=== PATIENT | female | born 1945 | race Caucasian/White ===

== ENCOUNTER 2017-04-12 06:35 | Inpatient (IN) | payer OTHER, BC ==
[2017-03-23 10:20] VITALS: BMI 16.0
--- NOTE | 2017-03-23 10:49 | PAT Medication Instructions ---
Service Date Mar 23, 2017. Current Home Medication List Aspirin (Aspirin Ec), 81 MG PO QAM Calcium Citrate-Vitamin D (Citracal + D3 Maximum), 1 TAB PO QAM Eplerenone (Inspra), 25 MG PO BID Fish Oil ([place]-3), 1 CAP PO QAM Fvpfpbcivav-Awibpjkuqkp-Lvr C- (Glucosamine Chondroitin), 1 TAB PO QAM Hydroxychloroquine Sulfate (Plaquenil), 200 MG PO QPM Multiple Vitamins W/ Minerals (Multi For Her 50+), 1 TAB PO QAM Specialty Vitamins Products (Lipidshield Plus), 1 TAB PO QAM [Cataplex B 12], 1 TAB PO QAM [Garlique], 1 TAB PO QAM Medication Instructions For Your Scheduled Surgery - Check with surgeon for instructions: Aspirin (Aspirin Ec), 81 MG PO QAM - Hold the following medications 2 weeks prior to surgery: [Garlique], 1 TAB PO QAM Fish Oil ([place]-3), 1 CAP PO QAM Pyyrzyzrwdz-Lqxsxkiwiwc-Pgm C- (Glucosamine Chondroitin), 1 TAB PO QAM - Check with prescribing physician for instructions: Hydroxychloroquine Sulfate (Plaquenil), 200 MG PO QPM - Hold the following medications the morning of surgery: Calcium Citrate-Vitamin D (Citracal + D3 Maximum), 1 TAB PO QAM Eplerenone (Inspra), 25 MG PO BID Multiple Vitamins W/ Minerals (Multi For Her 50+), 1 TAB PO QAM Specialty Vitamins Products (Lipidshield Plus), 1 TAB PO QAM [Cataplex B 12], 1 TAB PO QAM - Take the following medications as scheduled the night before surgery: Eplerenone (Inspra), 25 MG PO BID If you have any questions please call us at [phone] or [phone] or [phone]
--- NOTE | 2017-03-23 11:38 | DIAGNOSTIC IMAGING REPORT ---
TWO VIEW CHEST CLINICAL HISTORY: Preoperative examination. FINDINGS: PA and lateral chest radiographs are obtained. No prior studies are available for comparison at the time of dictation. The cardiomediastinal silhouette is unremarkable. The lungs and pleural spaces are clear. There is no pneumothorax. The bony thorax appears intact. IMPRESSION: No active disease in the chest. Electronically signed by: Rudy Marroquin M.D. 03/23/2017 11:36 AM Dictated Date/Time: 03/23/2017 11:36 AM
[2017-03-23 11:52] LABS: BASO % 0.3 %; BASO ABS # 0.02 K/uL (0-0.2); EOS % 0.5 %; EOS ABS # 0.03 K/uL (0-0.5); HEMATOCRIT 44.1 % (37-47); HEMOGLOBIN 14.5 g/dL (12.0-16.0); IG# 0.01 K/uL (0.00-0.02); LYMPH % 24.8 %; LYMPH ABS # 1.51 K/uL (1.2-3.4); MEAN CELL VOLUME 97.6 fL (80-100); MEAN CORPUSCULAR HEMOGLOBIN 32.1 pg (25-34); MEAN CORPUSCULAR HGB CONC 32.9 g/dl (32-36); MEAN PLATELET VOLUME 11.4 fL (7.4-10.4); MONO % 6.3 %; MONO ABS # 0.38 K/uL (0.11-0.59); NEUT % 67.9 %; NEUT ABS # 4.13 K/uL (1.4-6.5); PLATELET COUNT 176 K/uL (130-400); RED CELL DISTRIBUTION WIDTH CV 13.9 % (11.5-14.5); RED CELL DISTRIBUTION WIDTH SD 49.4 fL (36.4-46.3); WHITE BLOOD COUNT 6.08 K/uL (4.8-10.8)
[2017-03-23 11:58] LABS: PTT PATIENT 26.4 SECONDS (21.0-31.0)
[2017-03-23 12:19] LABS: ALBUMIN 3.8 gm/dl (3.4-5.0); CALCIUM 10.6 mg/dl (8.5-10.1); CREATININE 0.78 mg/dl (0.60-1.20); POTASSIUM 4.4 mmol/L (3.5-5.1)
[2017-03-23 12:45] LABS: HEMOGLOBIN A1C 5.8 % (4.5-5.6)
--- NOTE | 2017-04-11 14:41 | HISTORY & PHYSICAL EXAMINATION ---
DATE OF ADMISSION: 04/12/2017 CHIEF COMPLAINT: Chronic right shoulder pain. HISTORY OF PRESENT ILLNESS: This is a 71-year-old female patient of Dr. Donis'olga complaining of chronic right shoulder pain and weakness. She has failed conservative treatment including 2 rotator cuff surgeries in the past. She had a recent fall on her right shoulder. An MRI confirmed a non-reparable rotator cuff and the patient elected to proceed with a right reversed total shoulder arthroplasty. PAST MEDICAL HISTORY: Hypertension, otherwise a healthy 71-year-old female. SOCIAL HISTORY: Nonsmoker, nondrinker. PAST SURGICAL HISTORY: Appendectomy, hysterectomy, lump removal from her neck, rotator cuff surgery x2 as mentioned before. FAMILY HISTORY: Noncontributory. REVIEW OF SYSTEMS: The patient complains of chronic right shoulder pain and weakness. Otherwise, denies any shortness of breath, chest pain, nausea, vomiting or any other joint complaints. MEDICATIONS: Include Centrum ultra women's daily, 81 mg aspirin daily, omega 3 fish oil daily, glucosamine and chondroitin daily, Citracal plus vitamin D3 daily, vitamin B12 1000 mcg daily. She is also on Plaquenil 200 mg in the evening and Eplerenone 25 mg 2 tablets daily. ALLERGIES: INCLUDE PENICILLIN. PHYSICAL EXAMINATION: GENERAL: A well-developed, well-nourished 71-year-old female in no acute distress. She is alert and oriented x3 and pleasant. HEENT: Normocephalic, atraumatic. Extraocular motions are intact. Pupils are equal and reactive to light. HEART: Regular rate and rhythm, no murmurs appreciated. LUNGS: Clear. ABDOMEN: Soft, nontender, bowel sounds present. EXTREMITIES: Right shoulder reveals a positive impingement and crepitation maneuvering. She has full range of motion with pain. She has decreased strength at 3/5. NEUROLOGIC: Neurovascularly, she is intact in her right upper extremity. DIAGNOSES: Right shoulder rotator cuff arthropathy. She has a history of hypertension. PLAN: The patient was advised of her diagnosis. Indications, risks, benefits, and postop course have all been reviewed. The patient wishes to proceed with a right reversed total shoulder arthroplasty. Necessary consent forms, preoperative testing and clearances will be obtained.
[2017-04-12] VITALS (7 sets, daily range): BP systolic 99–172; BP diastolic 65–95; PULSE 77–90; TEMP 36.4–36.7; O2SAT 92–98; Ht 172.7 cm; Wt 49.8 kg
[~2017-04-12] VITALS: Ht 172.7 cm; Wt 49.8 kg
[~2017-04-12 06:35] MED LIST: ACETAMINOPHEN 500 MG TAB PO SCH; ASPI81TA28 PO; CALC1TAB9 PO; CATAPLEX B PO; CeleBREX 200 MG CAP PO SCH; DEXAMETHASONE 4 MG TAB PO SCH; FAMOTIDINE 20 MG TAB PO SCH; GABAPENTIN 300 MG CAP PO SCH; GARLIQUE PO; GLUCTAB7 PO; HYDR200T5 PO; INS/25 PO; LACTATED RINGER'S 1000ML 1,000 ML IV SCH; LACTATED RINGER'S 1000ML IV SCH; METOCLOPRAMIDE HCL 10 MG TAB PO SCH; MULT-223 PO; OMEG10007 PO; ROPIVACAINE 0.5% 5 MG/ML 30 ML VIAL ONE; SODIUM CHLORIDE 0.9% IV SCH; SPEC1TAB PO; VANCOMYCIN INJ 750 MG in SODIUM CHLORIDE 0.9% 250ML 250 ML IV SCH; VANCOMYCIN IV SCH
[2017-04-12] MEDS ORDERED: HYDROmorphone INJ 0.5 MG/0.5 ML SYR IV PRN (08:00)
[2017-04-12] MEDS ORDERED: ONDANSETRON INJ 2 MG/ML 2 ML VIAL IV PRN ×3 (08:00→12:15)
[2017-04-12] MEDS ORDERED: EpHEDrine SULFATE INJ 50 MG/ML AMP IV PRN ×2 (08:00)
[2017-04-12] MEDS ORDERED: HYDROmorphone INJ 2 MG/ML SYR/VIAL IV PRN (08:00)
[2017-04-12] MEDS ORDERED: PHENYLEPHRINE 100MCG/ML 5ML SYR IV PRN ×2 (08:00)
[2017-04-12] MEDS ORDERED: ATROPINE SULFATE 0.1 MG/ML 5ML SYR IV PRN ×2 (08:00)
[2017-04-12] MEDS ORDERED: ROCURONIUM BROMIDE 10 MG/ML 5 ML VIAL IV ONE ×2 (08:49→11:15)
[2017-04-12] MEDS ORDERED: MIDAZOLAM HCL 1 MG/ML 2ML VIAL ONE (08:49)
[2017-04-12] MEDS ORDERED: PROPOFOL IV EMULSION 10 MG/ML 20 ML VIAL IV ONE (08:49)
[2017-04-12] MEDS ORDERED: FENTANYL CITRATE INJ 50 MCG/1 ML 2 ML VIAL ONE ×2 (08:49→11:56)
--- NOTE | 2017-04-12 08:52 | History & Physical Bridge Note ---
H&P Re-Evaluation Bridge Note: I have examined the patient, reviewed the History & Physical and in the interval since the performance of the History & Physical I have noted the following changes of clinical significance: No changes noted
[2017-04-12] MEDS ORDERED: BACITRACIN 50000 UNIT VIAL ONE (09:47)
[2017-04-12] MEDS ORDERED: ONDANSETRON INJ 2 MG/ML 2 ML VIAL ONE (10:58)
[2017-04-12] MEDS ORDERED: EpHEDrine SULFATE 50MG/5ML SYR ONE (10:58)
[2017-04-12] MEDS ORDERED: PHENYLEPHRINE 100MCG/ML 5ML SYR ONE (10:58)
[2017-04-12] MEDS ORDERED: GLYCOPYRROLATE INJ 0.2 MG/ML VIAL ONE (11:56)
[2017-04-12] MEDS ORDERED: NEOSTIGMINE METHYLSULFATE 5 MG/5 ML SYR ONE (11:56)
--- NOTE | 2017-04-12 12:10 | [facility] Post Operative Brief Note ---
Immediate Operative Summary Operative Date Apr 12, 2017. Pre-Operative Diagnosis Right Shoulder Rotator Cuff Arthropathy,failed rotator cuff repair ,retained hardware and suture Post-Operative Diagnosis same ,chronic biceps rupture with retraction Procedure(s) Performed Right Reverse Total Shoulder Arthroplasty Uncemented,hardware removal suture excision Surgeon Dr Donis Associate Professor Of Counseling Surgeon(s) Kevin Schneider PA-C Estimated Blood Loss 50ml Findings as above Specimens As Per Surgeon A. Right Humerus Head with Explant Drains 2 hemovac Anesthesia general and regional Complication(s) None Disposition Recovery Room / PACU
[2017-04-12] MEDS ORDERED: ZOLPIDEM TARTRATE 5 MG TAB PO PRN (12:15)
[2017-04-12] MEDS ORDERED: MAGNESIUM HYDROXIDE SUSP 30 ML UDC PO PRN (12:15)
[2017-04-12] MEDS ORDERED: METOCLOPRAMIDE HCL INJ 5 MG/ML 2 ML VIAL IV PRN (12:15)
[2017-04-12] MEDS ORDERED: MoRPHine SULFATE 2 MG/ML CARP IV PRN (12:15)
[2017-04-12] MEDS ORDERED: BISACODYL 10 MG SUPP PR PRN (12:15)
[2017-04-12] MEDS ORDERED: NALOXONE HCL 0.4 MG/1 ML VIAL/CARP IV PRN (12:15)
[2017-04-12] MEDS ORDERED: VANCOMYCIN CONSULT ACTIVE PRN (12:15)
--- NOTE | 2017-04-12 12:39 | DIAGNOSTIC IMAGING REPORT ---
RIGHT SHOULDER 2 VIEWS CLINICAL HISTORY: Postoperative examination. FINDINGS: 2 portable views of the right shoulder are obtained. A right shoulder arthroplasty is in near-anatomic alignment. No fracture is seen. The acromioclavicular joint is preserved. There are expected postoperative changes overlying the right shoulder including skin clips, subcutaneous gas, soft tissue swelling, and a surgical drain. The visualized right lung parenchyma appears clear. IMPRESSION: Expected postoperative findings status post right shoulder arthroplasty. No acute fracture is seen. Electronically signed by: Rudy Marroquin M.D. 04/12/2017 12:38 PM Dictated Date/Time: 04/12/2017 12:37 PM
--- NOTE | 2017-04-12 13:24 | Anesthesiology Progress Note ---
Anesthesia Post Op Note Date & Time Apr 12, 2017 at 13:24 Vital Signs Pain Intensity: 0 Vital Signs Past 12 Hours Date Time Temp Pulse Resp B/P (MAP) Pulse Ox O2 Delivery O2 Flow Rate FiO2 04/12/17 12:55 36.0 81 16 135/69 100 Nasal Cannula 3 04/12/17 12:45 77 16 143/78 100 Oxymask 3 04/12/17 12:35 77 16 143/83 100 Oxymask 3 04/12/17 12:25 81 16 146/76 100 Oxymask 3 04/12/17 12:18 36.1 79 18 160/84 100 Oxymask 10 04/12/17 07:25 36.6 79 16 172/95 98 Room Air Notes Mental Status: alert / awake / arousable, participated in evaluation Pt Amnestic to Procedure: Yes Nausea / Vomiting: adequately controlled Pain: adequately controlled Airway Patency, RR, SpO2: stable & adequate BP & HR: stable & adequate Hydration State: stable & adequate Anesthetic Complications: no major complications apparent
[2017-04-12] MEDS: D5W AND 1/2NSS + 20MEQ KCL 1,000 ML IV SCH ×2 (14:19→23:24)
--- NOTE | 2017-04-12 14:47 | Medical Consult ---
Consultation Date of Consultation: Apr 12, 2017. Attending Physician: Moustapha Donis M.D. Reason for Consultation: Medical management History of Present Illness Patient is a 71 y/o female, with PMHx of HTN and lupus, s/p R shoulder replacement by Dr. Donis on 04/12. Hospitalist team was consulted for medical management. Patient is feeling well postop. Ate dinner- no N/V. Pain is 0/10. No BM/flatus postop. Patient denies any fever, chills, sweats, lightheadedness, dizziness, vision changes, CP, palpitations, edema, SOB, wheezing, cough, abdominal pain, nausea, vomiting, diarrhea, urinary symptoms, melena, numbness/ tingling, weakness, muscle/joint pain, anxiety/depression, active bleeding, or new skin discoloration/changes. Past Medical/Surgical History PAST MEDICAL HISTORY: HTN lupus PAST SURGICAL HISTORY: Appendectomy hysterectomy lump removal from her neck rotator cuff surgery x2 Family History [place], breast cancer Social History Smoking Status: Never Smoker Alcohol Use: none Drug Use: none Marital Status: Housing Status: lives with family Allergies Coded Allergies: Amlodipine (Verified Allergy, Intermediate, joint edema, 04/12/17) Penicillins (Verified Allergy, Unknown, SWELLING JOINTS, 04/12/17) Home Medications Reported Home Medications Medications Dose Route/Sig Max Daily Dose Days Date Category Inspra (Eplerenone) 25 Mg Tab 25 Mg PO BID 03/23/17 Reported Plaquenil (Hydroxychloroquine Sulfate) 200 Mg Tab 200 Mg PO QPM 03/23/17 Reported [Garlique] 1 Tab PO QAM 03/23/17 Reported [Cataplex B 12] 1 Tab PO QAM 03/23/17 Reported Lipidshield Plus (Specialty Vitamins Products) 1 Tab Tab 1 Tab PO QAM 03/23/17 Reported Citracal + D3 Maximum (Calcium Citrate-Vitamin D) 1 Tab Tab 1 Tab PO QAM 03/23/17 Reported Glucosamine Chondroitin (Wzaptfhdxeh-Beohcjdetwv-Gzq C-) 1 Tab Tab 1 Tab PO QAM 03/23/17 Reported [place]win-3 (Fish Oil) 1 Ea Cap 1 Cap PO QAM 03/23/17 Reported Aspirin Ec (Aspirin) 81 Mg Tab 81 Mg PO QAM 03/23/17 Reported Multi For Her 50+ (Multiple Vitamins W/ Minerals) 1 Tab Tab 1 Tab PO QAM 03/23/17 Reported Current Inpatient Medications Current Inpatient Medications Medications (Trade) Dose Ordered Sig/Morgan Route Start Time Stop Time Status Last Admin Dose Admin Lactated Ringer's 1,000 ml @ 60 mls/hr [id number] IV 04/12/17 06:00 04/12/17 22:39 Acetaminophen (Tylenol Tab) 1,000 mg PREOP PO 04/12/17 06:00 04/12/17 18:00 04/12/17 07:34 1,000 MG Celecoxib (CeleBREX CAP) 200 mg PREOP PO 04/12/17 06:00 04/12/17 18:00 04/12/17 07:34 200 MG Dexamethasone (Decadron Tab) 8 mg PREOP PO 04/12/17 06:00 04/12/17 18:00 04/12/17 07:35 8 MG Famotidine (Pepcid Tab) 20 mg PREOP PO 04/12/17 06:00 04/12/17 18:00 04/12/17 07:35 20 MG Gabapentin (Neurontin Cap) 300 mg PREOP PO 04/12/17 06:00 04/12/17 18:00 04/12/17 07:35 300 MG Metoclopramide HCl (Reglan Tab) 10 mg PREOP PO 04/12/17 06:00 04/12/17 18:00 04/12/17 07:35 10 MG Lactated Ringer's 1,000 ml @ 15 mls/hr Q24H IV 04/12/17 06:00 04/13/17 05:59 04/12/17 07:18 15 MLS/HR Vancomycin HCl 750 mg/Sodium Chloride 265 ml @ 125 mls/hr PREOP@0600 IV 04/12/17 06:00 04/12/17 19:00 04/12/17 08:05 125 MLS/HR Aspirin (Ecotrin Tab) 81 mg QAM PO 04/13/17 09:00 05/13/17 08:59 Hydroxychloroquine Sulfate (Plaquenil Tab) 200 mg QPM PO 04/12/17 21:00 05/12/17 20:59 Calcium/Vitamin D (Caltrate Plus Tab) 1 tab QAM PO 04/13/17 09:00 05/13/17 08:59 Miscellaneous Information (Order Awaiting Action) 1 ea QS N/A 04/12/17 14:00 05/12/17 13:59 Diphenhydramine HCl (Benadryl Cap) 25 mg Q8 PRN PO 04/12/17 12:15 05/12/17 12:14 Zolpidem Tartrate (Ambien Tab) 5 mg HSZ PRN PO 04/12/17 12:15 05/12/17 12:14 Metoclopramide HCl (Reglan Inj) 10 mg Q6H PRN IV 04/12/17 12:15 05/12/17 12:14 Ondansetron HCl (Zofran Inj) 4 mg Q6H PRN IV 04/12/17 12:15 05/12/17 12:14 Pantoprazole Sodium (Protonix Tab) 40 mg QAM PO 04/13/17 09:00 05/13/17 08:59 Potassium Chloride/Dextrose/ Sod Cl 1,000 ml @ 100 mls/hr Q10H IV 04/12/17 14:00 04/13/17 13:59 04/12/17 14:19 100 MLS/HR Vancomycin HCl 750 mg/Sodium Chloride 265 ml @ 125 mls/hr Q12H IV 04/12/17 20:00 04/12/17 22:08 Oxycodone HCl (Roxicodone Immediate Rel Tab) `1-2 TABS FOR PAIN `1 TAB... Q4H PRN PO 04/12/17 12:15 04/26/17 12:14 Acetaminophen (Tylenol Tab) 1,000 mg Q8 PO 04/12/17 22:00 05/12/17 21:59 Morphine Sulfate (MoRPHine SULFATE INJ) 2 mg Q2H PRN IV 04/12/17 12:15 04/26/17 12:14 Naloxone HCl (Narcan Inj) 0.1 mg Q2M PRN IV 04/12/17 12:15 05/12/17 12:14 Magnesium Hydroxide (Milk Of Magnesia Susp) 30 ml Q6H PRN PO 04/12/17 12:15 05/12/17 12:14 Bisacodyl (Dulcolax Supp) 10 mg DAILY PRN OK 04/12/17 12:15 05/12/17 12:14 Docusate Sodium (coLACE CAP) 100 mg BID PO 04/12/17 21:00 05/12/17 20:59 Multivitamins (Multivitamin Tab) 1 tab DAILY PO 04/13/17 09:00 05/13/17 08:59 Physical Exam Date Time Temp Pulse Resp B/P (MAP) Pulse Ox O2 Delivery O2 Flow Rate FiO2 04/12/17 13:49 80 16 128/75 (92) 92 Nasal Cannula 2.0 04/12/17 12:55 36.0 81 16 135/69 100 Nasal Cannula 3 04/12/17 12:45 77 16 143/78 100 Oxymask 3 04/12/17 12:35 77 16 143/83 100 Oxymask 3 04/12/17 12:25 81 16 146/76 100 Oxymask 3 04/12/17 12:18 36.1 79 18 160/84 100 Oxymask 10 04/12/17 07:25 36.6 79 16 172/95 98 Room Air General Appearance: no apparent distress, + pertinent finding (O2 NC ) Head: normocephalic, atraumatic Eyes: normal inspection, PERRL ENT: hearing grossly normal Neck: supple Respiratory/Chest: lungs clear, no respiratory distress, no accessory muscle use Cardiovascular: regular rate, rhythm Abdomen/GI: normal bowel sounds, non tender, soft Back: normal inspection Extremities/Musculoskelatal: no calf tenderness, no pedal edema Neurologic/Psych: alert, normal mood/affect, oriented x 3 Skin: normal color, warm/dry, no rash Assessment & Plan Patient is a 71 y/o female, with PMHx of HTN and lupus, s/p R shoulder replacement by Dr. Donis on 04/12. s/p R shoulder replacement by Dr. Donis on 04/12: - Surgical manangement, pain management, PT/OT, and DVT prophylaxis as per primary team - Bowel regimen ordered - Encourage incentive spirometer - Follow postop CBC and PRP HTN: - Inspra 25 mg BID non-formulary - Cover w/ IV Hydralazine PRN while inpatient Lupus- follows w/ Dr. Rosenthal: Continue Plaquenil GI prophylaxis: Protonix daily DVT prophylaxis: ASA 81 mg daily as per surgical team Code Status: LEVEL I, FULL Dispo: As per primary team Attending Attestation & Consult note: Pt seen/examined, chart reviewed, care plan d/w HERMANN Conteh. I agree w/ the tena components of her consult note. Pt resting comfortably during my visit. Offered no c/o cp, dyspnea, abd pain. Ate dinner w/o incident. Is not aware of any past h/o high calcium. Mentions she is due for thyroid nodule bx next month. VSS, BPs low-normal gen - NAD sitting in chair comfortably heart - RRR lungs - CTA b/l abd - soft, NT, BS+ ext - right shoulder in large sling; no ankle edema b/l A/P: 1. HTN - hold inspra due to low BPs. BPs likely low due to acute blood loss. 2. hypercalcemia - pre-op labs with mild hypercalcemia. Repeat BMP in am. If still high consider intact PTH level. She is not on meds that would cause hypercalcemia. 3. SLE - cont plaquenil; no evidence of flare. 4. anticipation of acute blood loss anemia - CBC in am. Cristy BARBOZA MD
[2017-04-12] MEDS ORDERED: HydrALAZINE HCL 20 MG/ML VIAL IV. PRN (15:00)
[2017-04-12] MEDS ORDERED: VANCOMYCIN INJ 750 MG in SODIUM CHLORIDE 0.9% 250ML 250 ML IV SCH (20:00)
--- NOTE | 2017-04-12 20:26 | OPERATIVE REPORT ---
DATE OF OPERATION: 04/12/2017 INDICATION FOR PROCEDURE: The patient is a 71-year-old female who has had a history of a rotator cuff repair in her right shoulder but she had failure of the repair and was at disability with using her arm over head due to pain. Her radiographs demonstrate she has proximal migration of the humerus down to acromiohumeral humeral interval. Some early arthritic changes, but no severe arthritic changes of the glenohumeral joint at this point. PREOPERATIVE DIAGNOSES: Failed rotator cuff repair, rotator cuff arthropathy. POSTOPERATIVE DIAGNOSES: Same including significant rotator cuff tendinopathy of the subscapularis with retained hardware which are PEEK suture anchors screws and suture material from prior rotator cuff repair and a long head biceps rupture with retraction. PROCEDURE: Right reverse total shoulder arthroplasty and hardware removal (suture anchor screws x2 and suture material). SURGEON: Moustapha Donis MD. MEDICAL REVIEW SPECIALIST: Kevin Schneider PA-C. ANESTHESIA: Regional block and general. OPERATIVE PROCEDURE: The patient was taken to the operating room, anesthetized with regional block and general anesthetic. She was placed in a 40 degree beach position with a towel roll in the medial border of right scapula. She was turned to the right side of the bed, so her shoulder could be manipulated off the bed as necessary. She had a foam headrest, protective eyewear and TEDs and SCDs. Her shoulder exam demonstrated that she had forward elevation to 150, abduction to 110. External rotation to 70 and internal rotation to 70. She had crepitation and did have anterior superior subluxation of the humerus. She is a very thin individual. Her right shoulder was then sterilely prepped and draped with ChloraPrep. An anterior deltopectoral approach was performed. A longitudinal incision was made in the deltopectoral interval. Skin was incised sharply. Subcutaneous flaps were elevated. She had a very small cephalic vein, which was dissected out and retracted with the deltoid laterally. The deltopectoral interval was dissected down to the clavipectoral fascia which was scarred and there was thickened bursa over the tendinopathic subscapularis tendon. The upper portion of the subscapularis was torn. The supraspinatus tendon was torn, retracted. The infraspinatus tendon repair was intact and teres minor was intact. The subscapularis was very thin, tendinopathic poor tissue withholding the lower portion and some of the capsule intact. The scarred bursa resected over the subscapularis was resected into the subacromial space. The upper centimeter of the pectoralis was released for inferior exposure and this revealed biceps tendon had retracted below the level of the pectoralis at this point. Further exposure was performed by releasing the remains of the tendinopathic subscapularis tissue and the capsule starting in the bicipital groove and then subperiosteally off of the lesser tuberosity down on to the neck and subperiosteally along the neck of the humerus as we gradually externally rotated the arm. Then the humerus was retracted posteriorly to the glenoid with a Fukuda retractor. Then I accessed the anterior capsule via the rotator interval area, released the capsule down to the 5 o'clock position and then resected the labrum circumferentially and did anterior-inferior, posterior-inferior capsular release with electrocautery on bone and a Mckeon elevator to gain exposure to the glenoid. The humerus was then exposed with extension and external rotation. Then the humeral head cut was made in 20 degrees of retroversion. The Tornier Aequalis reverse total shoulder arthroplasty system was used for the glenoid and the Ascend Flex long stem reversed replacement for the humeral component. The humerus was exposed with extension and external rotation and once we made the head cut, we had to remove the old hardware to obtain access to the canal. The suture anchors were removed. The sutures were cut and the repair of the infraspinatus unaffected by removing the suture anchors. Then a central hole for the canal was used followed by broaches up to a 4 and the 4B broach was placed in position and then we used the cup protector device on top of that. Then we retracted the humerus posterior to the glenoid with retractors and exposed the glenoid with glenoid retractors and then used a curet to remove the articular cartilage on the glenoid and removed the labrum circumferentially. Then I used the 25 mm baseplate drill guide, drilled a central hole for the reamer at 10 degrees of inferior tilt. Then used the reamer for the baseplate, widened the central hole irrigated, this copiously with antibiotic solution and bacitracin and then impacted in the 25 mm standard baseplate which is hydroxyapatite coated. This was a good pressfit. She was noted to have moderate osteoporosis. We used anterior compression screws 23 mm, posterior was 18 mm, the superior and inferior locking screws of 29 and 26 mm respectively. There was good fixation with the screws. The fan reamer for the glenosphere was used size 36 and then we used a 36/25 mm standard glenosphere impacted that onto the baseplate and tightened the screw and assured stability. Then attention was taken back to the humerus. Then, we did trial reduction using +0 high offset tray and the +6 mm humeral insert and there was no shuck, good stability through full motion. The trials were removed and then the final implant was assembled. I placed two #5 FiberWire sutures transosseously around the lower aspect to the lesser tuberosity, so we only had a lower portion of the subscap to repair. Then, the final implant was impacted in position which was the 4B long humeral stem with the +0 high offset and a 36+6 mm humeral insert. Then this was reduced to the glenoid. We verified stability. Then the subscap and lower capsule was repaired to help with postoperative stability issues and repaired that with the Clinton-Adama suture technique using #5 FiberWire sutures. That repair was secured through 50 degrees of external rotation, 90 degrees of abduction and 140 degrees of forward elevation without any tension on that repair. The wound was irrigated and the pectoralis split was closed with [id number] #2 Fiberwire sutures and after copious irrigation, the 2 drains were brought out laterally and placed deep to deltopectoral interval and then the deltopectoral interval was repaired with [id number] #1 Vicryl sutures. Then, the subcutaneous tissue was closed with interrupted 2-0 Vicryl, skin closed with sergio, sterile dressings applied and the patient tolerated the procedure well. HERMANN Murphy was my media center assistant and functioned as media center assistant in the entire procedure. He assisted with arm positioning, soft tissue retraction, instrument management and performed the subcutaneous skin closure and will participate in the postoperative care of the patient. I attest to the content of the Intraoperative Record and any orders documented therein. Any exception s are noted below.
[2017-04-12] MEDS ORDERED: INSPRA PO SCH (21:00)
[2017-04-12] MEDS ORDERED: HYDROXYCHLOROQUINE SULFATE 200 MG TAB PO SCH (21:00)
[2017-04-12] MEDS: DOCUSATE SODIUM 100 MG CAP PO SCH (21:06)
[2017-04-12] MEDS: ACETAMINOPHEN 500 MG TAB PO SCH (21:09)
[2017-04-12] MEDS: EPLERENONE 25 MG TAB PO SCH (21:10)
[2017-04-13 03:23] VITALS: BP 130/75; PULSE 77; TEMP 36.9; O2SAT 97
[2017-04-13] MEDS: ACETAMINOPHEN 500 MG TAB PO SCH ×2 (05:35→12:59)
[2017-04-13] MEDS ORDERED: VANCOMYCIN INJ 750 MG in SODIUM CHLORIDE 0.9% 250ML 250 ML IV SCH (06:00)
[2017-04-13 06:01] LABS: HEMATOCRIT 33.8 % (37-47); HEMOGLOBIN 11.3 g/dL (12.0-16.0); MEAN CELL VOLUME 96.3 fL (80-100); MEAN CORPUSCULAR HEMOGLOBIN 32.2 pg (25-34); MEAN CORPUSCULAR HGB CONC 33.4 g/dl (32-36); MEAN PLATELET VOLUME 10.5 fL (7.4-10.4); PLATELET COUNT 174 K/uL (130-400)
[2017-04-13] MEDS: OXYCODONE HCL IR 5 MG TAB (IMMEDIATE RELEASE) PO PRN ×3 (06:22→15:33)
[2017-04-13 06:31] LABS: CALCIUM 8.7 mg/dl (8.5-10.1); CREATININE 0.7 mg/dl (0.60-1.20); POTASSIUM 4.3 mmol/L (3.5-5.1)
[2017-04-13 07:13] VITALS: BP 127/71; PULSE 77; TEMP 36.7; O2SAT 96
--- NOTE | 2017-04-13 07:20 | Clinical Documentation Query ---
CLINICAL DOCUMENTATION QUERY A 71 yo female s/p R shoulder replacement with a documented weight of 109# and BMI of 16.7. In order for coders to capture this data, documentation of the patient's underweight status, or cachexia, should occur. In your clinical opinion is this patient being managed for: ( ) Underweight ( ) Not Agree ( ) Other explanation of clinical findings (Please Explain) ( ) Unable to determine (Please Define) ( ) Need to Discuss The medical record reflects the following clinical findings, treatment, and risk factors. Clinical Indicators: BMI 16.7 Treatment: Regular diet Risk Factors: S/P surgical intervention Please clarify and document your clinical opinion in the progress notes and discharge summary. Terms such as "probable", "suspected", "likely", "questionable", "possible", or "still to be ruled out" are acceptable. IF IN AGREEMENT, YOU MUST DOCUMENT ABOVE DIAGNOSTIC STATEMENT IN DAILY PROGRESS NOTES AND DISCHARGE SUMMARY. This document is not part of the patient's record. Thank You, Faiza Hadley RN [phone]
--- NOTE | 2017-04-13 07:44 | Anesthesiology Progress Note ---
Anesthesia Post Op Note Date & Time Apr 13, 2017 at 07:44 Vital Signs Pain Intensity: 6.0 Vital Signs Past 12 Hours Date Time Temp Pulse Resp B/P (MAP) Pulse Ox O2 Delivery O2 Flow Rate FiO2 04/13/17 07:13 36.7 77 16 127/71 (89) 96 Room Air 04/13/17 03:23 36.9 77 14 130/75 (93) 97 Room Air 04/12/17 23:25 Room Air 04/12/17 23:24 36.4 77 14 120/75 (90) 97 Room Air Notes Mental Status: alert / awake / arousable, participated in evaluation Pt Amnestic to Procedure: Yes Nausea / Vomiting: adequately controlled Pain: adequately controlled Airway Patency, RR, SpO2: stable & adequate BP & HR: stable & adequate Hydration State: stable & adequate Anesthetic Complications: no major complications apparent
--- NOTE | 2017-04-13 08:17 | Orthopedic Progress Note ---
Orthopedic Progress Note Date of Service Apr 13, 2017. Subjective Post OP Day: 1 Reports: feeling well, Denies: chest pain, SOB, nausea / vomiting, light headedness, calf pain Objective calves soft nontender, N/V intact, capillary refill less than 2 sec., dressing C /D/I, A&O x3, toes mobile, hemovac drainage (175/50 cc per shift) Date Time Temp Pulse Resp B/P (MAP) Pulse Ox O2 Delivery O2 Flow Rate FiO2 04/13/17 07:13 36.7 77 16 127/71 (89) 96 Room Air 04/13/17 03:23 36.9 77 14 130/75 (93) 97 Room Air 04/12/17 23:25 Room Air 04/12/17 23:24 36.4 77 14 120/75 (90) 97 Room Air 04/12/17 18:56 36.6 88 18 99/65 (76) 97 Room Air 04/12/17 16:20 36.7 90 18 109/71 (84) 98 Nasal Cannula 2.0 04/12/17 15:26 36.7 90 18 115/71 (86) 97 Nasal Cannula 2.0 04/12/17 13:49 80 16 128/75 (92) 92 Nasal Cannula 2.0 04/12/17 13:25 Nasal Cannula 2.0 04/12/17 13:25 Nasal Cannula 04/12/17 13:20 36.4 82 16 139/82 (101) 97 Nasal Cannula 04/12/17 12:55 36.0 81 16 135/69 100 Nasal Cannula 3 04/12/17 12:45 77 16 143/78 100 Oxymask 3 04/12/17 12:35 77 16 143/83 100 Oxymask 3 04/12/17 12:25 81 16 146/76 100 Oxymask 3 04/12/17 12:18 36.1 79 18 160/84 100 Oxymask 10 Laboratory Results 24 Hours: Test 04/13/17 05:43 Hematocrit 33.8 % Hemoglobin 11.3 g/dL Assessment & Plan Assessment: POD#1 sp R TSA Plan: PT/OT DVT proph- ASA Pain management- Maria Luisa, Tylenol DC planning- Possible DC home today if tolerates PT and pain controlled.
[2017-04-13] MEDS ORDERED: ONDA8TAB6 PO (08:21)
[2017-04-13] MEDS ORDERED: ACET-24 PO (08:21)
[2017-04-13] MEDS ORDERED: RXC5 PO (08:21)
--- NOTE | 2017-04-13 08:22 | Discharge Instructions ---
Discharge Instructions Date of Service Apr 13, 2017. Admission Reason for Admission: Right Shoulder Rotator Cuff Arthropathy Discharge Discharge Diagnosis / Problem: sp right TSA Discharge Goals Goal(s): Decrease discomfort, Improve function, Increase independence Activity Recommendations Activity Limitations: per Instructions/Follow-up section . Instructions / Follow-Up Instructions / Follow-Up ACTIVITY RECOMMENDATIONS: SELF CARE INSTRUCTIONS AFTER TOTAL SHOULDER ARTHROPLASTY A. You may do daily exercises as taught in physical therapy while in hospital. No lifting with the operative arm. Please schedule your outpatient physical therapy appointment to begin within 2-3 days after leaving the hospital. Specific restrictions will be written on your physical therapy prescription that is provided to you. B. You are to wear your sling/immobilizer at all times EXCEPT when performing your daily exercises, participating in physical therapy and for hygiene purposes. C. You may perform dry, daily dressing changes. Please keep your incision covered. You may shower 48 hours after surgery. Do not apply soap or any ointment/ lotions directly over incision. Do not soak incision in bath tub/swimming pool. D. You may use ice as needed to operative shoulder. SPECIAL CARE INSTRUCTIONS: MEDICATION INSTRUCTIONS: *It is recommended you take Aspirin 325mg daily for four weeks post-op. VERY IMPORTANT TO READ AND REVIEW A. There are a few signs you need to watch for after you are home. Call [facility] at [phone] if you experience any of the followin. Increased severe shoulder pain. Some pain is expected especially when you exercise. 2. Increased swelling in you shoulder or arm; pain or swelling in either upper extremity. 3. Any fluid drainage from the incision. 4. Shortness of breath or chest pain. B. Please call [facility] at [phone] if you have any questions or concerns about your operation or recovery. C. Call your physician if: 1. Temperature is greater than 101 degrees (F). 2. Pain is not relieved by prescribed pain medications. 3. Increase drainage or redness from incision. 4. Unanswered questions or concerns. FOLLOW UP VISIT: Please call [facility] at [phone] to schedule a follow up appointment with Dr. Donis or his PA in 12-14 days from your surgery date. Current Hospital Diet Patient's current hospital diet: Regular Diet Discharge Diet Recommended Diet: Regular Diet Procedures Procedures Performed: Right Reverse Total Shoulder Arthroplasty Uncemented,hardware removal suture excision Pending Studies Studies pending at discharge: no Laboratory Results Hemoglobin A1c Test 03/23/17 10:55 Range/Units Estimated Average Glucose 120 mg/dl Hemoglobin A1c 5.8 H 4.5-5.6 % Medical Emergencies . Who to Call and When: Medical Emergencies: If at any time you feel your situation is an emergency, please call 911 immediately. . Non-Emergent Contact Non-Emergency issues call your: Surgeon . "Provider Documentation" section prepared by Evelia Veras. . VTE Core Measure Inpt VTE Proph given/why not?: Other Anticoagulation, T.E.D. Stockings, SCD's [place] Drug Monitoring Program Search Results: patient reviewed within database, no issues identified
[2017-04-13] MEDS: D5W AND 1/2NSS + 20MEQ KCL 1,000 ML IV SCH (08:46)
[2017-04-13] MEDS: EPLERENONE 25 MG TAB PO SCH (08:49)
[2017-04-13] MEDS: DOCUSATE SODIUM 100 MG CAP PO SCH (08:49)
[2017-04-13] MEDS ORDERED: MULTIVITAMIN TAB PO SCH (09:00)
[2017-04-13] MEDS ORDERED: PANTOprazole SOD 40 MG TAB PO SCH (09:00)
[2017-04-13] MEDS ORDERED: ASPIRIN 81 MG ECTAB PO SCH (09:00)
[2017-04-13] MEDS ORDERED: CALCIUM 600MG + VIT D 400 IU TAB PO SCH (09:00)
--- NOTE | 2017-04-13 09:41 | Progress Note ---
Subjective Date of Service: Apr 13, 2017. Subjective Pt evaluation today including: conversation w/ patient, physical exam Patient reports feeling well. She has no complaints at this time. Review of Systems Constitutional: No fever, No chills Eyes: No worsening of vision ENT: No hearing loss Respiratory: No cough, No sputum Cardiac: No chest pain, No orthopnea Abdomen: No pain, No nausea Musculoskeletal: No joint pain Neurologic: No memory loss, No paralysis Psychiatric: No depression symptoms, No anhedonism Heme: No abnormal bleeding/bruising Skin: No rash, No itch All Other Systems: Reviewed and Negative Objective Vital Signs Date Time Temp Pulse Resp B/P (MAP) Pulse Ox O2 Delivery O2 Flow Rate FiO2 04/13/17 07:15 Room Air 04/13/17 07:13 36.7 77 16 127/71 (89) 96 Room Air 04/13/17 03:23 36.9 77 14 130/75 (93) 97 Room Air 04/12/17 23:25 Room Air 04/12/17 23:24 36.4 77 14 120/75 (90) 97 Room Air 04/12/17 18:56 36.6 88 18 99/65 (76) 97 Room Air 04/12/17 16:20 36.7 90 18 109/71 (84) 98 Nasal Cannula 2.0 04/12/17 15:26 36.7 90 18 115/71 (86) 97 Nasal Cannula 2.0 04/12/17 13:49 80 16 128/75 (92) 92 Nasal Cannula 2.0 04/12/17 13:25 Nasal Cannula 2.0 04/12/17 13:25 Nasal Cannula 04/12/17 13:20 36.4 82 16 139/82 (101) 97 Nasal Cannula 04/12/17 12:55 36.0 81 16 135/69 100 Nasal Cannula 3 04/12/17 12:45 77 16 143/78 100 Oxymask 3 04/12/17 12:35 77 16 143/83 100 Oxymask 3 04/12/17 12:25 81 16 146/76 100 Oxymask 3 04/12/17 12:18 36.1 79 18 160/84 100 Oxymask 10 Physical Exam Comments: General Appearance: no apparent distress, Head: normocephalic, atraumatic Eyes: normal inspection, PERRL ENT: hearing grossly normal Neck: supple Respiratory/Chest: lungs clear, no respiratory distress, no accessory muscle use Cardiovascular: regular rate, rhythm Abdomen/GI: normal bowel sounds, non tender, soft Back: normal inspection Extremities/Musculoskelatal: no calf tenderness, no pedal edema Neurologic/Psych: alert, normal mood/affect, oriented x 3 Skin: normal color, warm/dry, no rash Laboratory Results Last 24 Hours Test 04/13/17 05:43 White Blood Count 12.70 K/uL Red Blood Count 3.51 M/uL Hemoglobin 11.3 g/dL Hematocrit 33.8 % Mean Corpuscular Volume 96.3 fL Mean Corpuscular Hemoglobin 32.2 pg Mean Corpuscular Hemoglobin Concent 33.4 g/dl RDW Standard Deviation 49.0 fL RDW Coefficient of Variation 14.0 % Platelet Count 174 K/uL Mean Platelet Volume 10.5 fL Sodium Level 140 mmol/L Potassium Level 4.3 mmol/L Chloride Level 108 mmol/L Carbon Dioxide Level 26 mmol/L Anion Gap 6.0 mmol/L Blood Urea Nitrogen 15 mg/dl Creatinine 0.70 mg/dl Est Creatinine Clear Calc Drug Dose 59.6 ml/min Estimated GFR () 102.5 Estimated GFR (Non- 88.4 BUN/Creatinine Ratio 21.6 Random Glucose 119 mg/dl Calcium Level 8.7 mg/dl Assessment and Plan Patient is a 71 y/o female, with PMHx of HTN and lupus, s/p R shoulder replacement by Dr. Donis on 04/12. s/p R shoulder replacement by Dr. Donis on 04/12: - Surgical management, pain management, PT/OT, and DVT prophylaxis as per primary team - Bowel regimen ordered - Encourage incentive spirometer - Follow postop CBC and PRP Hypercalcemia resolved. likely from dehydration HTN: - Inspra 25 mg BID non-formulary - Med was not held. Patient tolerated medicine Lupus- follows w/ Dr. Rosenthal: Continue Plaquenil GI prophylaxis: Protonix daily DVT prophylaxis: ASA 81 mg daily as per surgical team Code Status: LEVEL I, FULL Dispo: As per primary team
[2017-04-13 10:37] VITALS: BP 127/71; PULSE 77; TEMP 36.7; O2SAT 96
[2017-04-13 11:24] VITALS: BP 113/74; PULSE 71; TEMP 36.6; O2SAT 96
== END 2017-04-13 15:51 | disposition home or self-care (01) | DRG 483 ==
LOC: C.ACU 06:35 → C.3E 08:40 → ENRESERV 12:57
PROVIDERS: ADMIT Orthopaedic Surgery Sports Medicine; ATTEND Orthopaedic Surgery Sports Medicine
PROC: 0RRJ00Z Replacement of Right Shoulder Joint with Reverse Ball and Socket Synthetic Substitute, Open Approach (ICD-10-PCS; principal; 2017-04-12 10:00)
PROC: 0PPC04Z Removal of Internal Fixation Device from Right Humeral Head, Open Approach (ICD-10-PCS; principal; 2017-04-12 10:00)
DX: M19.011 Primary osteoarthritis, right shoulder (principal); Z68.1 Body mass index [BMI] 19.9 or less, adult; M75.91 Shoulder lesion, unspecified, right shoulder; M62.111 Other rupture of muscle (nontraumatic), right shoulder; E83.52 Hypercalcemia; E86.0 Dehydration; M32.9 Systemic lupus erythematosus, unspecified; L93.0 Discoid lupus erythematosus; Z79.899 Other long term (current) drug therapy; Z79.82 Long term (current) use of aspirin; Z98.890 Other specified postprocedural states; Z91.81 History of falling; Z82.49 Family history of ischemic heart disease and other diseases of the circulatory system; Z80.3 Family history of malignant neoplasm of breast